=== PATIENT | female | born 1980 | race Two or more races ===

== ENCOUNTER 2016-12-30 12:11 | Emergency (ER) | payer MEDICAID ==
[~2016-12-30] VITALS: Ht 157.5 cm; Wt 61.9 kg
[~2016-12-30 12:11] MED LIST: ESTR0.5T PO
[2016-12-30] MEDS ORDERED: ONDANSETRON 2MG/ML, 2ML IVPush ONE (13:00)
[2016-12-30] MEDS ORDERED: SODIUM CHLORIDE 0.9% 1,000ML IVBOLUS ONE (13:00)
[2016-12-30] MEDS ORDERED: SODIUM CHLORIDE FLUSH 10ML SYR IVF ONE (13:00)
[2016-12-30 13:33] LABS: BLOOD UREA NITROGEN 9 mg/dL (7-18)
[2016-12-30 13:34] LABS: ASPARTATE AMINO TRANSFERASE 18 U/L (15-37)
[2016-12-30] MEDS ORDERED: ONDANSETRON 2MG/ML, 2ML ONE (13:40)
[2016-12-30] MEDS ORDERED: NITROFURANTOIN 5MG/ML ORAL SUSP PO ONE (14:00)
[2016-12-30] MEDS ORDERED: NITROFURANTOIN (MACROBID) 100 MG CAPSULE PO ONE (14:00)
[2016-12-30 14:27] VITALS: BP 117/72
== END 2016-12-30 14:58 | disposition home or self-care (01) ==
LOC: ED 12:46
DX: O26.891 Other specified pregnancy related conditions, first trimester (principal); N30.00 Acute cystitis without hematuria; Z3A.08 8 weeks gestation of pregnancy
CPT/HCPCS: 36415; 76801; 80053; 81001; 83690; 84702; 85025; 87086; 96361; 96374; 99285; J2405; J7030

== ENCOUNTER 2017-01-19 17:45 | Emergency (ER) | payer MEDICAID ==
[~2017-01-19] VITALS: Ht 162.6 cm; Wt 61.0 kg
[2017-01-19] MEDS ORDERED: SODIUM CHLORIDE 0.9% 1,000ML IVBOLUS ONE (18:00)
[2017-01-19] MEDS ORDERED: ONDANSETRON 2MG/ML, 2ML IVPush ONE (18:00)
[2017-01-19] MEDS ORDERED: ACETAMINOPHEN 500 MG TABLET PO ONE (18:00)
[2017-01-19] MEDS ORDERED: ACETAMINOPHEN 500 MG TABLET ONE (18:18)
[2017-01-19] MEDS ORDERED: ONDANSETRON 2MG/ML, 2ML ONE (18:18)
[2017-01-19 18:53] LABS: ASPARTATE AMINO TRANSFERASE 21 U/L (15-37); BLOOD UREA NITROGEN 11 mg/dL (7-18)
[2017-01-19 20:12] VITALS: BP 131/78
== END 2017-01-19 20:15 | disposition home or self-care (01) ==
LOC: ED 18:28
DX: O02.1 Missed abortion (principal); O23.11 Infections of bladder in pregnancy, first trimester; Z3A.09 9 weeks gestation of pregnancy; Z90.49 Acquired absence of other specified parts of digestive tract
CPT/HCPCS: 36415; 76801; 80053; 81001; 84702; 85025; 86901; 87086; 96361; 96374; 99285; J2405; J7030

== ENCOUNTER 2017-09-02 11:06 | Emergency (ER) | payer MEDICAID ==
[~2017-09-02] VITALS: Ht 160 cm; Wt 64.0 kg
[2017-09-02] MEDS ORDERED: KETOROLAC 30 MG/1 ML ONE (11:49)
[2017-09-02] MEDS ORDERED: ONDANSETRON ODT 4 MG ONE (11:49)
[2017-09-02] MEDS ORDERED: ONDANSETRON ODT 4 MG PO ONE (12:00)
[2017-09-02] MEDS ORDERED: KETOROLAC 60 MG/2 ML IM ONE (12:00)
[2017-09-02 12:03] LABS: RAPID INFLUENZA A Negative (Negative); RAPID INFLUENZA B Negative (Negative)
[2017-09-02 12:26] LABS: MEAN CORPUSCULAR HGB CONC 33.8 g/dL (32.4-35.8); MEAN CORPUSCULAR VOLUME 91.7 fL (80-100); MEAN PLATELET VOLUME 7.5 fL (7.4-10.4); PLATELET COUNT 284 x10^3/uL (130-400); RED BLOOD COUNT 4.46 x10^6/uL (3.82-5.3)
[2017-09-02 12:32] LABS: MD YES
[2017-09-02 12:42] LABS: ALANINE AMINOTRANSFERASE 20 U/L (12-78); ALBUMIN 3.9 g/dL (3.4-5.0); ANION GAP 7 mmol/L (5-15); CALCIUM 8.3 mg/dL (8.5-10.1); CHLORIDE 102 mmol/L (98-107)
[2017-09-02 12:44] LABS: BANDS%(MANUAL) 2 % (0-7); LYMPH#(MANUAL) 0.89 x10^3/uL (1-3.4); LYMPHS% (MANUAL) 6 % (22-44); MONOS#(MANUAL) 0.15 x10^3/uL (0.3-2.7); MONOS% (MANUAL) 1 % (2-9); SEG#(MANUAL) 13.56 x10^3/uL (1.8-6.8); SEGS% (MANUAL) 91 % (42-75)
[2017-09-02 12:45] LABS: <PLATELET ESTIMATE> ADEQUATE; <PLT MORPHOLOGY> NORMAL PLT MORPH; <RBC MORPHOLOGY> NORMAL
[2017-09-02 12:47] LABS: ALKALINE PHOSPHATASE 103 U/L (45-117); BILIRUBIN,TOTAL 0.5 mg/dL (0.2-1.0); CREATININE 0.56 mg/dL (0.55-1.02); TOTAL PROTEIN 7.5 g/dL (6.4-8.2)
[2017-09-02 12:48] LABS: MICROSCOPIC AUTO
[2017-09-02 12:49] LABS: CULTURE INDICATED? YES
[2017-09-02] MEDS ORDERED: CEFTRIAXONE 1,000 MG IM ONE (13:30)
[2017-09-02] MEDS ORDERED: CEFTRIAXONE 1,000 MG ONE (13:53)
[2017-09-02] MEDS ORDERED: LIDOCAINE 1%, 10ML ONE (13:54)
[2017-09-02 14:15] VITALS: BP 113/77
== END 2017-09-02 14:26 | disposition home or self-care (01) ==
LOC: ED 12:36
DX: B34.9 Viral infection, unspecified (principal); D72.829 Elevated white blood cell count, unspecified
CPT/HCPCS: 36415; 80053; 81001; 84703; 85025; 87086; 87400; 96372; 99284; J0696; J1885

== ENCOUNTER 2018-10-08 16:55 | Emergency (ER) | payer MEDICAID ==
[~2018-10-08] VITALS: Ht 157.5 cm; Wt 64.0 kg
[2018-10-08 17:25] VITALS: BP 125/91
[2018-10-08 17:55] LABS: RAPID INFLUENZA A Negative (Negative); RAPID INFLUENZA B Negative (Negative)
--- NOTE | 2018-10-08 18:17 | NUR ---
PT HERE FOR URI SYMPTOMS. PT REPORTS BEING ILL TODAY. Patient/Caregiver given discharge instructions and they have confirmed that they understand the instructions. Patient ambulatory with steady gait.
== END 2018-10-08 18:43 | disposition home or self-care (01) ==
LOC: ED 18:29
DX: B34.9 Viral infection, unspecified (principal)
CPT/HCPCS: 71046; 87400; 99284

== ENCOUNTER → 2018-12-25 | Outpatient (CLI) | payer MEDICAID | END | disposition home or self-care (01) | LOC: CFH 14:13 | PROVIDERS: ATTEND Obstetrics & Gynecology | DX: N64.52 Nipple discharge (principal) | CPT/HCPCS: 76642; 77066; G0279 ==

== ENCOUNTER 2019-03-29 10:17 | Emergency (ER) | payer MEDICAID ==
[~2019-03-29] VITALS: Ht 162.6 cm; Wt 62.2 kg
[2019-03-29 11:01] VITALS: BP 133/87
== END 2019-03-29 12:18 | disposition home or self-care (01) ==
LOC: ED 11:53
DX: N30.00 Acute cystitis without hematuria (principal); R11.2 Nausea with vomiting, unspecified; Z90.49 Acquired absence of other specified parts of digestive tract
CPT/HCPCS: 36415; 76830; 80053; 81001; 83690; 84703; 85025; 87086; 96372; 99284; J0696; J1885; Q0162